=== PATIENT | male | born 1995 ===

== ENCOUNTER 2022-12-29 07:59 | Emergency (ER) | payer OTHER, BC ==
[2022-12-29] MEDS ORDERED: Ondansetron 4 MG/2 ML SDV IVPUSH ONE (08:13)
[2022-12-29] MEDS ORDERED: Morphine 4 MG/ML Syringe IVPUSH ONE ×2 (08:13→09:04)
[2022-12-29 08:20] LABS: BASOPHILS PERCENT AUTO 0.2 % (0.0-1.5); EOSINOPHILS ABSOLUTE AUTO 0.1 K/uL (0.0-0.7); EOSINOPHILS PERCENT AUTO 0.6 % (0.0-7.0); HEMOGLOBIN 15.6 g/dL (13.0-17.0); LYMPHOCYTES ABSOLUTE AUTO 3.1 K/uL (0.6-2.4); LYMPHOCYTES PERCENT AUTO 30.8 % (16.0-40.0); MEAN CORPUSCULAR HEMOGLOBIN 30.7 pg (27.0-32.0); MEAN CORPUSCULAR HGB CONC 34.7 g/dL (31.0-37.0); MEAN CORPUSCULAR VOLUME 88.6 fL (80.0-98.0); MONOCYTES ABSOLUTE AUTO 0.6 K/uL (0.0-0.8); MONOCYTES PERCENT AUTO 5.9 % (0.0-15.0); NEUTROPHILS ABSOLUTE AUTO 6.2 K/uL (1.4-5.7); NEUTROPHILS PERCENT AUTO 62.5 % (48.0-80.0); NRBC ABSOLUTE 0 K/uL; PLATELET COUNT,PLT 232 K/uL (150-400); RED BLOOD CELL COUNT 5.08 M/uL (4.50-5.90); WHITE BLOOD CELL COUNT,WBC 9.94 K/uL (4.0-11.0)
[2022-12-29] MEDS ORDERED: Iopamidol 755 MG/ML 500 ML Multipack Bottle IVPUSH ONE (08:41)
[2022-12-29 09:03] LABS: A/G RATIO 1.3 (0.9-1.6); ALBUMIN 3.9 g/dL (3.4-5.0); BILIRUBIN TOTAL 1.3 mg/dL (0.2-1.0); CALCIUM 8.5 mg/dL (8.5-10.1); CARBON DIOXIDE,CO2 23.7 mmol/L (21.0-32.0); CREATININE 1.1 mg/dL (0.8-1.3); EST CRCL DRUG DOSING (CG) 106.48 mL/min; POTASSIUM,K 4.1 mmol/L (3.5-5.1)
[2022-12-29] MEDS ORDERED: Acetaminophen 325 MG Tab PO ONE (11:04)
[2022-12-29] MEDS ORDERED: Ibuprofen 400 MG Tab PO ONE (11:04)
[2022-12-29] MEDS ORDERED: Morphine 15 MG Tab PO STA (11:05)
[2022-12-29] MEDS ORDERED: Lidocaine 4% 1 each Patch TOP PRN (11:05)
== END 2022-12-29 15:06 | disposition home or self-care (01) ==
LOC: MW.ED 07:59
DX: S22.42XA Multiple fractures of ribs, left side, initial encounter for closed fracture (principal); S22.030A Wedge compression fracture of third thoracic vertebra, initial encounter for closed fracture; S22.050A Wedge compression fracture of T5-T6 vertebra, initial encounter for closed fracture; S01.511A Laceration without foreign body of lip, initial encounter; S80.12XA Contusion of left lower leg, initial encounter; S40.212A Abrasion of left shoulder, initial encounter; V29.99XA Rider (driver) (passenger) of other motorcycle injured in unspecified traffic accident, initial encounter
CPT/HCPCS: 36415; 70450; 71045; 71260; 72125; 74177; 80053; 85025; 96374; 96375; 96376; 99284; A9270; J2270; J2405; Q9967; 72128; 72128-26; 72131; 72131-26